=== PATIENT | female | born 2000 | race African-American/Black ===

== ENCOUNTER 2022-03-30 22:47 | Emergency (ER) | payer SELFPAY ==
[~2022-03-30] VITALS: Ht 162.6 cm; Wt 55.8 kg
[2022-03-31] MEDS ORDERED: IBUPROFEN 600 MG TAB PO STA (00:14)
[2022-03-31] MEDS ORDERED: ACETAMINOPHEN 325 MG TAB PO ONE (00:15)
[2022-03-31] MEDS ORDERED: ACETAMINOPHEN 325 MG TAB ONE (00:28)
[2022-03-31] MEDS ORDERED: IBUPROFEN 600 MG TAB ONE (00:30)
[2022-03-31] MEDS ORDERED: AZITHROMYCIN250 MG PO (01:02)
== END 2022-03-31 01:13 | disposition home or self-care (01) ==
LOC: ER 23:15
DX: R50.9 Fever, unspecified (principal); B34.9 Viral infection, unspecified; M54.2 Cervicalgia; Z20.822 Contact with and (suspected) exposure to COVID-19
CPT/HCPCS: 99283; U0002

== ENCOUNTER 2024-09-12 17:37 | Emergency (ER) | payer SELFPAY ==
[~2024-09-12] VITALS: Ht 162.6 cm; Wt 59.0 kg
[~2024-09-12 17:37] MED LIST: AZITHROMYCIN250 MG PO; CEFDINIR300 MG PO; CIPRO500 MG PO; DOXYCYCLINE HY100 MG PO
[2024-09-12 18:15] VITALS: PULSE 72; RESP 18; TEMP 98.1
[2024-09-12 18:38] LABS: BILIRUBIN,URINE NEGATIVE (NEGATIVE); CLARITY,URINE SL CLOUDY (CLEAR); COLOR,URINE YELLOW (YELLOW); GLUCOSE, URINE NEGATIVE (NEGATIVE); KETONES,URINE NEGATIVE (NEGATIVE); LEUKOCYTE ESTERASE ,URINE SMALL (NEGATIVE); NITRITE,URINE NEGATIVE (NEGATIVE); PH,URINE 6 (5 - 7); PREGNANCY TEST, URINE NEGATIVE (NEGATIVE); PROTEIN,URINE DIPSTICK 1+ (NEGATIVE); URINE UROBILINOGEN 0.2 mg/dL (0.2 - 1)
[2024-09-12 18:50] LABS: BACTERIA,URINE MODERATE /HPF; EPITHELIAL CELLS,URINE FEW /LPF; RBC,URINE 21-50 /HPF (0-5)
[2024-09-12] MEDS ORDERED: DOXYCYCLINE HY100 MG PO (20:48)
[2024-09-12] MEDS ORDERED: METRONIDAZOLE500 MG PO (20:48)
[2024-09-12] MEDS ORDERED: CEFDINIR300 MG PO (20:48)
[2024-09-12] MEDS ORDERED: LIDOCAINE HCL 1% LOCAL INJ 20 ML VIAL ONE (21:01)
[2024-09-12] MEDS: CEFTRIAXONE 500 MG VIAL IM ONE (21:18)
[2024-09-12] MEDS: LIDOCAINE HCL 1% LOCAL INJ 20 ML VIAL INJ ONE (21:19)
[2024-09-12 21:35] VITALS: BP 118/81; PULSE 145; RESP 18; TEMP 98.3; O2SAT 99
== END 2024-09-12 21:37 | disposition home or self-care (01) ==
LOC: ER 20:36
DX: R30.0 Dysuria (principal); N39.0 Urinary tract infection, site not specified; N89.8 Other specified noninflammatory disorders of vagina
CPT/HCPCS: 81001; 81025; 99284; J0696; J2003